=== PATIENT | female | born 1975 | race Caucasian/White ===

== ENCOUNTER 2016-07-03 02:14 | Emergency (ER) | payer OTHER ==
[~2016-07-03] VITALS: Ht 165.1 cm; Wt 84.8 kg
[~2016-07-03 02:14] MED LIST: AUGMENTIN 875-1 EACH PO; CYCLOBENZAPRINE10 M1 PO; DEXTROAMP-AMPHE20 MG PO; FLUOXETINE HCL20 M2 PO; MULTI-DAY VITA1 EACH PO; OXYCODONE HCL30 M1 PO; OXYCONTIN60 M1 PO
[2016-07-03 02:21] VITALS: BP 136/94
[2016-07-03 03:02] LABS: ABSOLUTE BASOPHIL COUNT 0.1 /CUMM (0.0-0.2); ABSOLUTE EOSINOPHIL COUNT 0.3 /CUMM (0.0-0.7); ABSOLUTE GRANULOCYTE CT 5.2 /CUMM (1.4-6.5); ABSOLUTE LYMPH COUNT 2.9 /CUMM (1.2-3.4); ABSOLUTE MONOCYTE COUNT 0.5 /CUMM (0.10-0.60); BASOPHIL % 0.6 % (0.0-2.0); EOSINOPHIL % 3.2 % (0-5); HEMATOCRIT 37.2 % (37-47); MEAN CORPUSCULAR HGB 27.9 PG (27.0-31.0); MEAN CORPUSCULAR HGB CONC 33.4 G/DL (33.0-37.0); MEAN CORPUSCULAR VOLUME 83.6 FL (81.0-99.0); MEAN PLATELET VOLUME 7.3 FL (7.4-10.4); PLATELET COUNT 384 /CUMM (130-400); RED BLOOD CELL CT 4.45 /CUMM (4.20-5.40); WHITE BLOOD CELL COUNT 8.9 /CUMM (4.8-10.8)
--- NOTE | 2016-07-03 04:00 | ED CARDIAC/CP/PALPITATIONS ---
History of Present Illness General Chief Complaint: Chest Pain Stated Complaint: CP PAIN X 1 HR Source: patient, family Exam Limitations: no limitations Vital Signs & Intake/Output Vital Signs & Intake/Output Vital Signs Date Time Temp Pulse Resp B/P B/P Pulse O2 O2 Flow FiO2 Mean Ox Delivery Rate 07/03 0300 98 Room Air 07/03 0221 97.7 85 22 136/94 98 Allergies Coded Allergies: No Known Allergies (11/08/15) Reconcile Medications Amoxicillin/Potassium Clav (Augmentin 875-125 Tablet) 1 EACH TABLET 1 TAB PO BID DENTAL Cyclobenzaprine HCl 10 MG TABLET 1 TAB PO TID PRN PAIN Dextroamphetamine/Amphetamine (Dextroamp-Amphetamin 20 MG Tab) 20 MG TABLET 1 TAB PO BID ADD (Reported) Fluoxetine HCl 20 MG CAPSULE 1 CAP PO DAILY MENTAL HEALTH (Reported) Multivitamin (Multi-Day Vitamins) 1 EACH TABLET 1 TAB PO DAILY SUPPLEMENT ( Reported) Oxycodone HCl 30 MG TABLET 1 TAB PO TID PAIN (Reported) Oxycodone HCl (Oxycontin) 60 MG TAB.ER.12H 1 TAB PO BID PAIN (Reported) Triage Note: PT DEVELOPED SHARP/BURNING CHEST APIN WHEN SHE LAID DOWN TO GO TO SLEEP APPROX 1 HR AGO NO PAIN AT PRESENT EKG AND LABWORK DONE Triage Nurses Notes Reviewed? yes Onset: Abrupt Duration: minute(s):, gone now Timing: single episode today Location: right chest Radiation: no radiation Activities at Onset: sleep Prior Chest Pain/Card Workup: no prior chest pain Modifying Factors: Improves With: rest. : No Patient currently breastfeeds: No HPI: 32-year-old female history of back pain and reflux presents with a right sided chest pain that she experienced when she was lying on her right side in bed. The pain lasted 20 minutes and self resolved on the way to the emergency department. She also confers a feeling of panic. She had some wine prior to going to bed and notes that she might of had some reflux too. She notes that she has a flight to [place] at 8 AM and would not like to stay in the emergency department. Upon arrival to the emergency department she is completely pain-free. The pain was not radiating. She did not have diaphoresis syncopal symptoms lightheadedness or shortness of breath. Past History Travel History Traveled to [place] past 21 day No Medical History Any Pertinent Medical History? see below for history Neurological: NONE EENT: NONE Cardiovascular: NONE Respiratory: NONE Gastrointestinal: NONE Hepatic: NONE Renal: NONE Musculoskeletal: disk herniation, CHRONIC LOW BACK PAIN Psychiatric: NONE Endocrine: NONE Blood Disorders: PE Surgical History Surgical History: none Psychosocial History What is your primary language Syriac Tobacco Use: Never used Family History Hx Contributory? No Review of Systems Review of Systems Constitutional: Reports: no symptoms. EENTM: Reports: no symptoms. Respiratory: Reports: no symptoms. Cardiovascular: Reports: no symptoms. GI: Reports: no symptoms. Genitourinary: Reports: no symptoms. Musculoskeletal: Reports: no symptoms. Skin: Reports: no symptoms. Neurological/Psychological: Reports: no symptoms. Hematologic/Endocrine: Reports: no symptoms. Immunologic/Allergic: Reports: no symptoms. All Other Systems: Reviewed and Negative Physical Exam Physical Exam General Appearance: well developed/nourished, no apparent distress Head: atraumatic, normal appearance Eyes: Bilateral: normal appearance. Ears, Nose, Throat: normal pharynx, normal ENT inspection Neck: normal inspection, supple, full range of motion Respiratory: normal breath sounds, chest non-tender, no respiratory distress Cardiovascular: regular rate/rhythm Gastrointestinal: normal bowel sounds, soft, non-tender, no organomegaly Back: normal inspection, normal range of motion Extremities: normal inspection Neurologic/Psych: no motor/sensory deficits, awake, alert, oriented x 3 Skin: intact, normal color, warm/dry Core Measures ACS in differential dx? No Severe Sepsis Present: No Septic Shock Present: No Progress Differential Diagnosis: costochondritis versus reflux. I doubt PE given the negative d-dimer. I doubt myocardial disease given her lack of risk factors normal EKG and troponin. Plan of Care: Orders Procedure Date/time Status XRY-PORTABLE CHEST XRAY 07/03 220 Active TROPONIN LEVEL 07/04 219 Complete HUMAN BETA HCG SCREEN 07/04 219 Complete D-DIMER 07/04 219 Complete COMPREHENSIVE METABOLIC PANEL 07/04 219 Complete CBC WITHOUT DIFFERENTIAL 07/04 219 Complete EKG 07/03 214 Active Laboratory Tests 07/03/16 0255: Anion Gap 9, Estimated GFR > 60, BUN/Creatinine Ratio 20.0, Glucose 99, Calcium 9.7, Total Bilirubin 0.5, AST 24, ALT 39, Alkaline Phosphatase 77, Troponin I < 0.01, Total Protein 7.5, Albumin 4.3, Globulin 3.2, Albumin/Globulin Ratio 1.3, Total Beta HCG NEGATIVE, D-Dimer 208, CBC w Diff NO MAN DIFF REQ, RBC 4.45, MCV 83.6, MCH 27.9, RDW 13.0, MPV 7.3 L, Gran % 58.0, Lymphocytes % 32.3, Monocytes % 5.9, Eosinophils % 3.2, Basophils % 0.6, Absolute Granulocytes 5.2, Absolute Lymphocytes 2.9, Absolute Monocytes 0.5, Absolute Eosinophils 0.3, Absolute Basophils 0.1, PUBS MCHC 33.4 Initial ED EKG: normal axis, normal intervals, normal p-waves, normal QRS complex, normal sinus rhythm Comments: Patient declines chest x-ray Departure Departure Disposition: HOME OR SELF CARE Condition: Stable Clinical Impression Primary Impression: Chest pain Referrals: PATIENT HAS NO PRIMARY CARE DR (PCP/Family) Departure Forms: Customer Survey General Discharge Information Comments I discussed this patient staying for a second troponin and repeat EKG. The patient declines this stating that she has a flight to [facility]. She is feeling well and chest pain-free. I encouraged her to stay for a second troponin and repeat EKG. She declined again stating that she was going on vacation in [facility]. I encouraged her to return immediately to the emergency department if her pain returns. I counseled her about the risks of heart attack, morbidity, including . Critical Care Note Critical Care Note Critical Care Time: non-applicable
== END 2016-07-03 03:55 ==
LOC: ERH 02:14
PROVIDERS: Pediatrics
DX: R07.9 Chest pain, unspecified (principal)
CPT/HCPCS: 93005; 93010

== ENCOUNTER 2017-10-18 12:06 | Emergency (ER) | payer OTHER ==
[2017-10-18 12:17] VITALS: BP 139/81
--- NOTE | 2017-10-18 12:17 | ED NECK/BACK PAIN COMPLAINT ---
History of Present Illness General Chief Complaint: Lower Extremity Problems Stated Complaint: PAIN SHOOTING DOWN LEFT LEG Source: patient Exam Limitations: no limitations Vital Signs & Intake/Output Vital Signs & Intake/Output Vital Signs Date Time Temp Pulse Resp B/P B/P Pulse O2 O2 Flow FiO2 Mean Ox Delivery Rate 10/18 1217 82 20 139/81 100 Allergies Coded Allergies: No Known Allergies (11/08/15) Reconcile Medications Dextroamphetamine/Amphetamine (Dextroamp-Amphetamin 20 MG Tab) 20 MG TABLET 1 TAB PO BID ADD (Reported) Ibuprofen 800 MG TABLET 1 TAB PO TID PAIN Methadone Hydrochloride (Methadone HCl) 10 MG TABLET 1 TAB PO 4XDP BREAKTHROUGH PAIN (Reported) Methylprednisolone. (Medrol) 4 MG TAB.DS.PK 1 DP PO AD SCIATICA 6 on day 1 then reduce by one tablet daily until gone Oxycodone HCl 30 MG TABLET 1 TAB PO TID PAIN (Reported) Oxycodone HCl (Oxycontin) 60 MG TAB.ER.12H 1 TAB PO BID PAIN (Reported) Triage Note: PER PT L BUTT TO THIGH/CALF PAIN X 3 WEEKS, PT REPORTS HX OF DVT, YRS AGO ON COUMADIN X 6 MONTHS AT THAT TIME. NO GROSS SWELLING NOTED CMS WNL Triage Nurses Notes Reviewed? yes Onset: Abrupt Duration: day(s): Timing: recent history Quality/Severity: moderate, severe : No Patient currently breastfeeds: No HPI: 42-year-old female comes into the emergency room for further evaluation of left lower back pain being down to her left knee. Pain is sharp. Worse with any type of movement. She reports that she has some swelling to her left leg she feels like. He has a history of DVT. She is currently no longer on anticoagulants. Denies any falls or trauma. Nothing seems to make the symptoms better or worse. (Arik Perkins) Past History Travel History Traveled to [place] past 21 day No Medical History Any Pertinent Medical History? see below for history Neurological: NONE EENT: NONE Cardiovascular: NONE Respiratory: NONE Gastrointestinal: NONE Hepatic: NONE Renal: NONE Musculoskeletal: disk herniation, CHRONIC LOW BACK PAIN Psychiatric: NONE Endocrine: NONE Blood Disorders: DVT Surgical History Surgical History: none Psychosocial History What is your primary language Yoruba Tobacco Use: Current Daily Use Daily Tobacco Use Amount/Type: => 5 Cigarettes daily Family History Hx Contributory? No (Arik Perkins) Review of Systems Review of Systems Constitutional: Reports: no symptoms. Eyes: Reports: no symptoms. Ears, Nose, Throat, Mouth: Reports: no symptoms. Respiratory: Reports: no symptoms. Cardiovascular: Reports: no symptoms. Gastrointestinal/Abdominal: Reports: no symptoms. Musculoskeletal: Reports: see HPI. Skin: Reports: no symptoms. Neurological/Psychological: Reports: no symptoms. All Other Systems: Reviewed and Negative (Arik Perkins) Physical Exam Physical Exam General Appearance: well developed/nourished, mild distress Head: atraumatic Eyes: Bilateral: normal appearance. Ears, Nose, Throat, Mouth: hearing grossly normal, moist mucous membrane Neck: normal inspection Respiratory: no respiratory distress Back: normal inspection, tenderness left lower back Extremities: normal range of motion Motor: Deficit L4 Right: No Deficit L4 Left: No Deficit L5 Right: No Deficit L5 Left: No Deficit S1 Right: No Deficit S1 Right: No Neurologic/Psych: awake, alert, oriented x 3, normal mood/affect Skin: intact, normal color, warm/dry Core Measures CVA/TIA Diagnosis: No (Arik Perkins) Progress Differential Diagnosis: herniated disc, myofascial strain, sciatica, DVT Plan of Care: Current Medications Sig/Rishi Start time Last Medication Dose Stop Time Status Admin Ketorolac 60 MG ONCE ONE 10/18 1415 UNVr 10/18 Tromethamine 10/18 1416 1406 (Toradol) Diagnostic Imaging: Viewed by Me: Ultrasound. Discussed w/RAD: Ultrasound. Radiology Impression: PATIENT: ARIA LINDSEY PRESENT AGE: 42 PATIENT ACCOUNT NO: [id number] : 77 LOCATION: [facility] ORDERING PHYSICIAN: Arik WOOD SERVICE DATE: 10/18/17 EXAM TYPE: US - US -UNILATERAL VENOUS DOPPLER EXAMINATION: US TRIPLEX LOWER EXTREMITY, LEFT CLINICAL INFORMATION: Left leg pain and swelling with a history of DVT. COMPARISON: None TECHNIQUE: Color-flow triplex imaging with spectral analysis and compression Doppler were performed on the left lower extremity. FINDINGS: Respiratory variation, normal compression and augmented flow are noted throughout the lower extremity. The visualized common femoral vein, superficial femoral vein, profunda femoral vein, popliteal vein and midcalf peroneal and posterior tibial venous segments show no evidence of deep venous thrombosis. There is no Deng's cyst. IMPRESSION: No evidence of deep venous thrombosis involving the left lower extremity. DICTATED BY: Cruz Gonzalez MD DATE/TIME DICTATED:10/18/171328 JOURNEYMAN ELECTRICIAN:PEDRO DATE/TIME TRANSCRIBED:1328 CONFIDENTIAL, DO NOT COPY WITHOUT APPROPRIATE AUTHORIZATION. < Electronically signed in Other Vendor System> SIGNED BY: Cruz Gonzalez MD 10/18/17 9003 (Arik Perkins) Departure Departure Disposition: HOME OR SELF CARE Condition: Stable Clinical Impression Primary Impression: Sciatica, left side Referrals: Travis JACKSON,Alfredo Cobb MD,Roderick Patient Has No Primary Care Dr (PCP/Family) Additional Instructions: Take ibuprofen and Medrol Dosepak as prescribed. Follow-up with your pain management doctor. Return if any concerns worsening symptoms. He may need physical therapy, possible injections of YOUR low back. Go on a [employer] insurance website and look for referral for neurosurgery/orthopedic doctor. Please go over all results of today's visit with your primary care doctor. Contact your primary care doctor to let them know you were here in the emergency room. There may be nonspecific findings which may not be related to your visit today here in the emergency room but may require further evaluation and chronic monitoring by your primary care doctor. If you had a laceration today the chance of foreign body always remains. You should follow-up with your primary care doctor for recheck in 3-5 days for a wound check. If you had an x-ray done there is a chance that a fracture could have been missed on initial read and you should follow-up with your primary care doctor for repeat x-rays if symptoms persist. If your blood pressure was elevated here in the emergency room please have rechecked by [facility] primary care doctor within the next 48. If you were prescribed a narcotic here in the emergency room or any type of controlled substances you're not allowed to drive while taking this medication or operate any type of heavy machinery. Narcotics can make you feel lightheaded dizziness nausea and can cause constipation. You may need to berry picker a stool softener. Thank you for choosing [facility] emergency room. Please return to the emergency room immediately if you have any other concerns worsening of symptoms. Departure Forms: Customer Survey General Discharge Information Prescriptions: Current Visit Scripts Ibuprofen 1 TAB PO TID #60 TAB Methylprednisolone. (Medrol) 1 DP PO AD #1 DP 6 on day 1 then reduce by one tablet daily until gone Comments 10/18/2017 3:32:07 PM Patient clinically looks well. In no apparent distress. Symptoms are most consistent with sciatica. No evidence of DVT. No motor deficits. (Paddy WOOD,Arik) PA/SILVER SOLDERER Co-Sign Statement Statement: ED Attending supervision documentation- [] I saw and evaluated the patient. I have also reviewed all the pertinent lab results and diagnostic results. I agree with the findings and the plan of care as documented in the PA's/SILVER SOLDERER's documentation. [x] I have reviewed the ED Record and agree with the PA's/SILVER SOLDERER's documentation. [] Additions or exceptions (if any) to the PAs/SILVER SOLDERER's note and plan are summarized below: [] (Jose Mccann DO)
[2017-10-18] MEDS ORDERED: METHADONE HCL10 M1 PO (12:18)
--- NOTE | 2017-10-18 13:35 | ULTRASOUND REPORT ---
EXAMINATION: US TRIPLEX LOWER EXTREMITY, LEFT CLINICAL INFORMATION: Left leg pain and swelling with a history of DVT. COMPARISON: None TECHNIQUE: Color-flow triplex imaging with spectral analysis and compression Doppler were performed on the left lower extremity. FINDINGS: Respiratory variation, normal compression and augmented flow are noted throughout the lower extremity. The visualized common femoral vein, superficial femoral vein, profunda femoral vein, popliteal vein and midcalf peroneal and posterior tibial venous segments show no evidence of deep venous thrombosis. There is no Deng's cyst. IMPRESSION: No evidence of deep venous thrombosis involving the left lower extremity.
[2017-10-18] MEDS ORDERED: MEDROL4 M2 PO (14:05)
[2017-10-18] MEDS ORDERED: IBUPROFEN800 M1 PO (14:05)
== END 2017-10-18 14:19 ==
LOC: ERH 12:06
DX: M54.42 Lumbago with sciatica, left side (principal); F17.210 Nicotine dependence, cigarettes, uncomplicated
CPT/HCPCS: 96372; J1885